=== PATIENT | female | born 1935 | race Two or more races ===

== ENCOUNTER → 2017-03-16 | Emergency (ER) | payer OTHER ==
[~2017-03-16] MED LIST: ACETAMINOPHEN 325 MG TABLET (FP) ONE; ACETAMINOPHEN 325 MG TABLET (FP) PO ONE; CEPHALEXIN MONOHYDRATE 250 MG CAPSULE (FP) ONE; CEPHALEXIN MONOHYDRATE 500 MG CAPSULE (UD) PO ONE; DOXYCYCLINE HYCLATE 100 MG CAPSULE PO ONE; FAMOTIDINE 20 MG/50 ML IVPB 50 ML IVPB ONE; MAG HYDROX/AL HYDROX/SIMETH 30 ML UNIT-DOSE CUP ONE; MAG HYDROX/AL HYDROX/SIMETH 30 ML UNIT-DOSE CUP PO ONE; SODIUM CHLORIDE 0.9% 1000 ML INFUS.BAG IV ONE
[2017-03-16 18:21] VITALS: BMI 32.9
--- NOTE | 2017-03-16 18:51 | PDOC ---
History of Present Illness - General History Source: Patient Exam Limitations: No Limitations - History of Present Illness Initial Comments: 03/16/17 18:56 The patient 81 year old morbidly obese female with a significant past medical history of CVA, residual left eye vision loss, cardiomegaly, GOUT, HLD, and HTN , who presents to the ED with an episode of shaking an hour before presentation. She also complains of fevers, abdominal pain, constipation, nausea , and right elbow pain secondary to the shaking. Patient denies vomiting, diarrhea. Patient denies dysuria, frequency, hematuria. She states she has had chronic leg edema for the last few weeks. She denies any sick contacts, recent travels. Past surgical hx: Hysterectomy. <Rafael Shaw - Last Filed: 03/16/17 19:10> <Natalya Woods - Last Filed: 03/16/17 23:20> - General Chief Complaint: SIRS, Suspected/Possible Stated Complaint: RIGHT ARM PAIN, SHAKES Time Seen by Provider: 03/16/17 18:35 Past History <Rafael Shaw - Last Filed: 03/16/17 19:10> - Past Medical History Cardiac Disorders: Yes (enlarged heart) CVA: Yes (blind lt eye) HTN: Yes Other medical history: arthritis gout - Psycho/Social/Smoking Cessation Hx Anxiety: No Suicidal Ideation: No Smoking History: Former smoker Have you smoked in the past 12 months: No Information on smoking cessation initiated: No Hx Alcohol Use: No Drug/Substance Use Hx: No Substance Use Type: None <Natalya Woods - Last Filed: 03/16/17 23:20> - Past Medical History Allergies/Adverse Reactions: Allergies Allergy/AdvReac Type Severity Reaction Status Date / Time Penicillins Allergy Verified 03/16/17 18:18 Home Medications: Ambulatory Orders Doxycycline Hyclate 100 mg PO BID #14 capsule MDD 2 03/16/17 Review of Systems - Review of Systems Able to Perform ROS?: Yes Comments:: 03/16/17 18:56 GENERAL/CONSTITUTIONAL: + fever. + rigors. No weakness. HEAD, EYES, EARS, NOSE AND THROAT: No change in vision. No ear pain or discharge. No sore throat. CARDIOVASCULAR: No chest pain or shortness of breath. RESPIRATORY: No cough, wheezing, or hemoptysis. GASTROINTESTINAL: + abdominal pain. + nausea + constipation. No vomiting, diarrhea GENITOURINARY: No dysuria, frequency, or change in urination. MUSCULOSKELETAL: + right elbow pain. No joint or muscle swelling or pain. No neck or back pain. SKIN: No rash NEUROLOGIC: No headache, vertigo, loss of consciousness, or change in strength/ sensation. ENDOCRINE: No increased thirst. No abnormal weight change. HEMATOLOGIC/LYMPHATIC: No anemia, easy bleeding, or history of blood clots. ALLERGIC/IMMUNOLOGIC: No hives or skin allergy. <Rafael Shaw - Last Filed: 03/16/17 19:10> *Physical Exam - Vital Signs Last Vital Signs Temp Pulse Resp BP Pulse Ox 101.2 F H 75 20 156/83 94 L 03/16/17 18:19 03/16/17 18:19 03/16/17 18:19 03/16/17 18:19 03/16/17 18:19 - Physical Exam Comments: 03/16/17 18:59 GENERAL: Awake, alert, and fully oriented, in no acute distress HEAD: No signs of trauma EYES: PERRLA, EOMI, sclera anicteric, conjunctiva clear ENT: Auricles normal inspection, hearing grossly normal, nares patent, oropharynx clear without exudates. Moist mucosa NECK: Normal ROM, supple, no lymphadenopathy, JVD, or masses LUNGS: Breath sounds equal, clear to auscultation bilaterally. No wheezes, and no crackles HEART: Regular rate and rhythm, normal S1 and S2, no murmurs, rubs or gallops ABDOMEN: Epigastric tenderness. Right upper quadrant tenderness. normoactive bowel sounds. No guarding, no rebound. No masses. BACK: No CVA tenderness. EXTREMITIES: Normal range of motion, no edema. No clubbing or cyanosis. No cords, erythema, or tenderness NEUROLOGICAL: Cranial nerves II through XII grossly intact. Normal speech, normal gait SKIN: Warm, Dry, normal turgor, no rashes or lesions noted. <Rafael Shaw - Last Filed: 03/16/17 19:10> - Vital Signs Last Vital Signs Temp Pulse Resp BP Pulse Ox 101.2 F H 75 20 156/83 94 L 03/16/17 18:19 03/16/17 18:19 03/16/17 18:19 03/16/17 18:19 03/16/17 18:19 <Natalya Woods - Last Filed: 03/16/17 23:20> ED Treatment Course - LABORATORY CBC & Chemistry Diagram: 03/16/17 19:33 03/16/17 19:33 <Natalya Woods - Last Filed: 03/16/17 23:20> Medical Decision Making - Medical Decision Making 03/16/17 18:47 81 yo F with h/o HTN cardiomegaly, prior CVA partial vision loss, here today with one day of rigors now fever and nause,and stomach pain. pt complaining of epigastric pain, no vomiting. also has constipation. no urinary sxs. also c/o elbow pain, gouty inflammation right elbow; has had gradual increase in edema in both legs for weeks. no cp no cough. no sore throat. took motrin just prior to arrival. pt pcp is dr. ahuja. on exam pt awake alert lungs clear bilaterally. heart regular RR no mrg. abd soft obese, epigastric ttp, RUQ ttp. no rebound no guarding. no cva tenderness. nuero alert oriented x 3, moves all ext. ext bilat nonpitting gino. skin warm and dry and no rash. differential: gastritis, cholecystitis, cholelithiasis, pyelo, uti viral syndrome pneumonia. plan ua culture labs tylenol cxr ua bedside gb sono. 03/16/17 19:54 focused ED ultrasound RUQ, gallbladder. indication RUQ pain . findings: no stone, wall thickening, edema or distension. neg sonographic shin 's. CBD 5.9 normal. wall normal in size <4mm. impression; normal gallbladder. 03/16/17 22:48 pt refusing to stay for ct a/p states abd resolved with pepcid and maalox. will start on keflex for questional infiltrate on lateral xray and borderline urine. would like to go home. encourage to follow up with dr. ahuja. 03/16/17 23:17 pt allergic to penicillin unsure if has taken cephalosporins in the past. unsure of reaction to penicillin. not good candidate for levqauin due to age, will treat with doxy. 03/16/17 23:18 called to inform pt pcp dr ahuja at [phone] <Natalya Woods - Last Filed: 03/16/17 23:20> *DC/Admit/Observation/Transfer - Attestations Scribe Attestion: 03/16/17 18:59 Documentation prepared by Rafael Shaw, acting as medical billing specialist for Natalya Woods MD, . <Rafael Shaw - Last Filed: 03/16/17 19:10> - Discharge Dispostion Admit: No <Natalya Woods - Last Filed: 03/16/17 23:20> Diagnosis at time of Disposition: Bronchitis - Prescriptions Prescriptions: Doxycycline Hyclate 100 mg PO BID #14 capsule MDD 2 - Patient Instructions Printed Discharge Instructions: DI for Fever (Symptom) -- Adult, Pneumonia- Adult Additional Instructions: take keflex 500 mg three times daily x 7 days . follow up with DR Ahuja this week. call to schedule. bring copies of your blood work when you go to the doctor. return for vomiting worseing or persistant fevers or any concerns. take tylenol 500 mg every 6 hours as needed for fever. Print Language: BURUN[place]AN
[2017-03-16 19:50] LABS: BASOPHIL 0.3 % (0-2.0); EOSINOPHIL 0.6 % (0-4.5); MCH 29.2 pg (25.7-33.7); MCHC 33.3 g/dl (32.0-36.0); MEAN CELL VOLUME 87.4 fl (80-96); NEUTROPHILS 82.5 % (42.8-82.8); PLATELET COUNT 163 K/MM3 (134-434); WHITE BLOOD COUNT 10.9 K/mm3 (4.0-10.0)
[2017-03-16 19:51] LABS: URINE APPEARANCE CLEAR; URINE BILIRUBIN NEGATIVE (NEGATIVE); URINE BLOOD NEGATIVE (NEGATIVE); URINE COLOR YELLOW; URINE GLUCOSE (UA) NEGATIVE (NEGATIVE); URINE KETONE TRACE (NEGATIVE); URINE NITRITE NEGATIVE (NEGATIVE); URINE UROBILINOGEN 2.0 E.U/dl E.U./dl (0.2-1.0)
[2017-03-16 19:55] LABS: URINE LEUK ESTERASE 2+ (NEGATIVE); URINE PROTEIN 2+ (NEGATIVE)
[2017-03-16 19:58] LABS: URINE HYALINE CAST 1 /lpf; URINE MUCUS RARE; URINE RBC 1 /hpf (0-3); URINE WBC 4 /hpf (3-5)
[2017-03-16 20:11] LABS: ALBUMIN 3.9 g/dl (3.4-5.0); ANION GAP 9 (8-16); BILIRUBIN,TOTAL 0.7 mg/dL (0.2-1.0); CALCIUM 8.7 mg/dL (8.5-10.1); CO2 24 mmol/L (21-32); CREATININE 1.2 mg/dL (0.55-1.02); GLUCOSE,RANDOM 87 mg/dL (74-106); SGOT/AST 18 U/L (15-37); SGPT/ALT 19 U/L (12-78); TOT PROT 7.4 g/dl (6.4-8.2)
[2017-03-16 20:13] LABS: ALK PHOS 115 U/L (45-117); TROPONIN I < 0.02 ng/ml (0.00-0.05)
[2017-03-16 22:08] VITALS: PULSE 60
[2017-03-16 23:16] VITALS: BP 149/74; TEMP 98.2
--- NOTE | 2017-03-17 10:36 | EKG ---
Test Reason : Blood Pressure : / mmHG Vent. Rate : 061 BPM Atrial Rate : 061 BPM P-R Int : 154 ms QRS Dur : 076 ms QT Int : 452 ms P-R-T Axes : -06 -04 004 degrees QTc Int : 455 ms NORMAL SINUS RHYTHM NONSPECIFIC T WAVE ABNORMALITY ABNORMAL ECG NO PREVIOUS ECGS AVAILABLE Confirmed by SHANDA OLEA, IRMA ([id number]) on 03/17/2017 10:36:07 AM Referred By: Confirmed By:IRMA LAND MD
== END | disposition home or self-care (01) ==
LOC: JER 18:07
PROC: 3E033GC Introduction of Other Therapeutic Substance into Peripheral Vein, Percutaneous Approach (ICD-10-PCS; principal; 2017-03-16)
DX: J40 Bronchitis, not specified as acute or chronic (principal); I10 Essential (primary) hypertension; E78.00 Pure hypercholesterolemia, unspecified; M10.9 Gout, unspecified; I69.898 Other sequelae of other cerebrovascular disease
CPT/HCPCS: 36415; 71020-TC; 80053; 81003; 81015; 82550; 83605; 84484; 85025; 87040; 87086; 93005; 93010; 96365; 99285-25